=== PATIENT | female | born 1940 | race Caucasian/White ===

== ENCOUNTER 2016-12-03 17:39 | Emergency (ER) | payer MEDICARE, BC ==
[2016-12-03 17:59] VITALS: BP 141/72
--- NOTE | 2016-12-03 18:46 | UC ---
Throat Pain/Nasal Alejandro HPI - HPI Summary HPI Summary: 76 year old female presents complaining of post-nasal drip, sore throat, productive cough with white mucus, temperature of 99F and chills x 3 days. Reports feeling very fatigued and pleuritic chest pain. Symptoms have gradually worsened over the past three days. Returned from traveling to visit her daughter and niece last week, niece was ill with a viral cold. - History of Current Complaint Chief Complaint: UCGeneralIllness Stated Complaint: COUGH,SORE THROAT, FEVER Hx Obtained From: Patient ?: No Onset/Duration: Gradual Onset Severity: Moderate - Patient feels moderately ill Cough: Productive - thick white Associated Signs & Symptoms: Positive: Nasal Discharge, Fever, Other - fatigue - Epiglottits Risk Factors Epiglottis Risk Factors: Negative - Allergies/Home Medications Allergies/Adverse Reactions: Allergies Allergy/AdvReac Type Severity Reaction Status Date / Time Tetracycline Allergy Intermediate Hives Verified 12/03/16 17:59 Lobster Allergy Hives Uncoded 12/03/16 17:59 Home Medications: Home Medications Biotin [Eql Biotin] 5,000 mcg PO 12/03/16 [History] Losartan TAB* [Cozaar TAB*] 25 mg PO DAILY 12/03/16 [History Confirmed 12/03/16] PMH/Surg Hx/FS Hx/Imm Hx Previously Healthy: Yes Cardiovascular History Of: Reports: Cardiac Disorders - Tachycardia - Surgical History Surgical History: Yes Surgery Procedure, Year, and Place: Left Breast Biopsy, 2005. Right Breast Cyst , - Social History Occupation: Retired Lives: With Family Alcohol Use: Rare Substance Use Type: None Smoking Status (MU): Former Smoker Type: Cigarettes Have You Smoked in the Last Year: No When Did the Patient Quit Smoking/Using Tobacco: ~1965 - Immunization History Most Recent Influenza Vaccination: [id number] Most Recent Tetanus Shot: Unsure Most Recent Pneumonia Vaccination: Unsure Review of Systems Constitutional: Fever, Chills, Fatigue Skin: Negative Eyes: Negative ENT: Sore Throat, Nasal Discharge Respiratory: Negative, Cough Cardiovascular: Negative Gastrointestinal: Negative Genitourinary: Negative Motor: Negative Neurovascular: Negative Musculoskeletal: Negative, Other: - osteopenia Neurological: Negative Psychological: Negative All Other Systems Reviewed And Are Negative: Yes Physical Exam Triage Information Reviewed: Yes Appearance: Ill-Appearing Vital Signs: Initial Vital Signs Temp 100.3 F 12/03/16 17:54 Pulse 108 12/03/16 17:54 Resp 18 12/03/16 17:54 BP 141/72 12/03/16 17:54 Pulse Ox 98 12/03/16 17:54 Vital Signs Reviewed: Yes Eye Exam: Normal Eyes: Positive: Conjunctiva Clear ENT Exam: Normal ENT: Positive: Pharyngeal erythema, Nasal congestion, Nasal drainage Dental Exam: Normal Respiratory: Positive: Chest non-tender, Lungs clear, Normal breath sounds, Decreased breath sounds Cardiovascular Exam: Normal Cardiovascular: Positive: RRR, No Murmur, Pulses Normal Abdominal Exam: Normal Abdomen Description: Positive: Nontender Bowel Sounds: Positive: Present Musculoskeletal Exam: Normal Musculoskeletal: Positive: Strength Intact, ROM Intact Neurological Exam: Normal Neurological: Positive: Alert, Fatigued Psychological Exam: Normal Skin Exam: Normal Throat Pain/Nasal Course/Dx - Differential Dx/Diagnosis Provider Diagnoses: Upper respiratory infection, likely viral Discharge - Discharge Plan Condition: Stable Disposition: HOME Patient Education Materials: Upper Respiratory Infection (ED) Referrals: Gayle Lynne MD [Primary Care Provider] - If Needed (Call or return if you develop increasing fever, shortness of breath, chest pain, bloody sputum, or otherwise worsen. If you have not improved at all after several days, contact your primary care physician or return here.)
--- NOTE | 2016-12-03 19:40 | RAD ---
INDICATION: Cough productive, fever. Nasal congestion. Headache. COMPARISON: None. TECHNIQUE: Dual energy PA and routine lateral views of the chest were obtained. REPORT: Elevated lung volumes and minimal prominence of the interstitial markings. No alveolar consolidation, focal pulmonary lesion, pleural effusion, pneumothorax. The heart, pulmonary vasculature, and mediastinal contours are unremarkable. Multilevel thoracic degenerative spondylosis. IMPRESSION: Stigmata of probable chronic obstructive pulmonary disease. No acute cardiopulmonary process evident.
== END 2016-12-03 19:41 | disposition home or self-care (01) ==
LOC: UCCORT 17:39
DX: J06.9 Acute upper respiratory infection, unspecified (principal); Z87.891 Personal history of nicotine dependence
CPT/HCPCS: 71020; 87502; 99212; G0463